=== PATIENT | female | born 2000 | race Caucasian/White ===

== ENCOUNTER 2024-11-30 21:27 | Emergency (ER) | payer OTHER ==
[2024-11-30 21:47] VITALS: BP 110/72; PULSE 60; RESP 16; TEMP 97.5; BMI 21.1
[2024-11-30] MEDS ORDERED: AMOX TR/POT CLAV 875MG/125MG TABLETS (FP) PO ONE (22:07)
[2024-11-30] MEDS ORDERED: LIDOCAINE 2.5%/PRILOCAINE 2.5% (5 Gram/TUBE) TP ONE (22:13)
[2024-11-30] MEDS: LIDOCAINE 2.5%/PRILOCAINE 2.5% 30 GRAM TUBE TP ONE (22:14)
[2024-11-30] MEDS ORDERED: AMOX TR/POT CLAV 875MG/125MG TABLETS (FP) ONE (22:23)
[2024-11-30] MEDS: AMOX TR/POT CLAV 875MG/125MG TABLETS (FP) PO ONE ×2 (22:38)
== END 2024-11-30 22:54 | disposition home or self-care (01) ==
LOC: FER 21:27
DX: S31.813A Puncture wound without foreign body of right buttock, initial encounter (principal); W54.0XXA Bitten by dog, initial encounter
CPT/HCPCS: 99283-25